=== PATIENT | female | born 1990 | race Caucasian/White ===

== ENCOUNTER 2019-05-15 14:39 | Emergency (ER) | payer MEDICAID ==
[~2019-05-15] VITALS: Ht 172.7 cm; Wt 120.0 kg
[2019-05-15 18:15] VITALS: BP 153/96
== END 2019-05-15 18:17 | disposition home or self-care (01) ==
LOC: ER 14:39
DX: R59.0 Localized enlarged lymph nodes (principal)
CPT/HCPCS: 99281

== ENCOUNTER 2019-10-14 05:42 | Inpatient (IN) | payer MEDICAID ==
[~2019-10-14] VITALS: Ht 165.1 cm; Wt 149.7 kg
[2019-10-14 08:50] LABS: CHLORIDE 106 mEq/L (98-107)
[2019-10-14 08:54] LABS: BASOPHILS % 0.9 % (0.0-2.0); EOSINOPHILS % 0.3 % (0.0-5.0); HEMOGLOBIN. 7.8 g/dL (12.0-16.0); LYMPHOCYTES % 24.8 % (20.0-50.0); MEAN CORPUSCULAR HEMOGLOBIN 25.4 pg (28.0-32.0); MEAN CORPUSCULAR VOLUME 78.1 fL (81.0-99.0); MONOCYTES % 3.3 % (2.0-8.0); NEUTROPHILS % 70.7 % (40.0-76.0); RED BLOOD CELL COUNT 3.07 mill/uL (4.2-5.4); RED CELL DISTRIBUTION WIDTH 15.7 % (11.6-14.6)
[2019-10-14 09:33] LABS: PLATELET 302 x1000/uL (130-400)
[2019-10-14] MEDS ORDERED: IBUPROFEN 800MG TABLET PO ONE (11:00)
[2019-10-14 12:03] LABS: HEMATOCRIT 21.5 % (36.0-48.0)
[2019-10-14 14:14] LABS: HEMATOCRIT 20.7 % (36.0-48.0); HEMOGLOBIN 6.8 g/dL (12.0-16.0)
[2019-10-14] MEDS ORDERED: FERR256T PO (17:23)
[2019-10-14] MEDS ORDERED: NORE-28 MT (17:24)
[2019-10-14] MEDS ORDERED: HYDROCODONE/ACETAMINOPHEN 10/325MG TABLET PO PRN (18:00)
[2019-10-14] MEDS ORDERED: CLONIDINE 0.1MG TABLET PO PRN (18:00)
[2019-10-14] MEDS ORDERED: ONDANSETRON HCL 4MG/2ML INJ IV PRN (18:00)
[2019-10-14] MEDS ORDERED: GUAIFENESIN 200MG/10ML SUGAR FREE UDC PO PRN (18:00)
[2019-10-14] MEDS ORDERED: ACETAMINOPHEN 650MG/20.3ML UDC GT PRN (18:00)
[2019-10-14] MEDS ORDERED: MAGNESIUM/ALUMINUM HYDROXIDE/SIMETHICONE 30ML UDC PO PRN (18:00)
[2019-10-14] MEDS ORDERED: IPRATROPIUM/ALBUTEROL 0.5-3(2.5)MG/3ML NEB HHN PRN (18:00)
[2019-10-14] MEDS ORDERED: ACETAMINOPHEN 325MG TABLET PO PRN (18:00)
[2019-10-14] MEDS ORDERED: DIPHENHYDRAMINE 50MG/ML VIAL IV PRN (18:00)
[2019-10-14] MEDS ORDERED: NA PHOS,M-B/NA PHOS,DI-BA ENEMA 118ML PR PRN (18:00)
[2019-10-14] MEDS ORDERED: DOCUSATE SODIUM 100MG CAPSULE PO PRN (18:00)
[2019-10-14] MEDS ORDERED: ACETAMINOPHEN 650MG SUPP PR PRN (18:00)
[2019-10-14] MEDS ORDERED: HYDROCODONE/ACETAMINOPHEN 5/325MG TABLET PO PRN (18:00)
[2019-10-14 18:12] VITALS: BP 141/82
[2019-10-14 20:11] VITALS: BP 144/65
[2019-10-14 20:49] LABS: TOTAL IRON BINDING CAPACITY 295 ug/dL (250-450)
[2019-10-14 21:15] LABS: VITAMIN B12 SERUM 305 pg/mL (211-911)
[2019-10-14] MEDS ORDERED: SODIUM CHLORIDE 0.9% INJ 3ML FLUSH IVF SCH (22:00)
== END 2019-10-14 21:15 | disposition left against medical advice (07) | DRG 532 ==
LOC: ER 05:42 → EDBEDREQSVC 15:42 → EDBEDREQTM 15:42 → EDBEDREQ 15:42 → ENRESERV 15:55 → 6EST 17:06
PROVIDERS: ADMIT Family Medicine; ATTEND Family Medicine
PROC: 30233N1 Transfusion of Nonautologous Red Blood Cells into Peripheral Vein, Percutaneous Approach (ICD-10-PCS; principal; 2019-10-14)
DX: N93.9 Abnormal uterine and vaginal bleeding, unspecified (principal); D21.9 Benign neoplasm of connective and other soft tissue, unspecified; D64.9 Anemia, unspecified
CPT/HCPCS: 36415; 76830; 76856; 80053; 82607; 83540; 83550; 85014; 85018; 85025; 86850; 86900; 86920; 93005; 99285; P9016

== ENCOUNTER 2019-10-23 22:31 | Emergency (ER) | payer MEDICAID ==
[~2019-10-23 22:31] MED LIST: FERR256T PO; NORE-28 MT
== END 2019-10-24 00:19 | disposition left against medical advice (07) ==
LOC: ER 22:31
DX: R53.1 Weakness (principal); Z53.21 Procedure and treatment not carried out due to patient leaving prior to being seen by health care provider

== ENCOUNTER 2022-11-04 08:31 | Emergency (ER) | payer MEDICAID ==
[~2022-11-04] VITALS: Ht 162.6 cm; Wt 152.0 kg
[2022-11-04 08:51] VITALS: BP 175/94
[2022-11-04] MEDS ORDERED: ACETAMINOPHEN 325MG TABLET PO STA (11:16)
== END 2022-11-04 15:19 | disposition left against medical advice (07) ==
LOC: ER 09:10
DX: H92.02 Otalgia, left ear (principal); R03.0 Elevated blood-pressure reading, without diagnosis of hypertension
CPT/HCPCS: 99282